=== PATIENT | male | born 1940 | race Caucasian/White ===

== ENCOUNTER 2018-06-10 05:43 | Inpatient (IN) | payer MEDICARE, BC ==
[2018-05-31 12:03] LABS: MEAN CORPUSCULAR HEMOGLOBIN 29.9 PG (27.0-31.0); MEAN CORPUSCULAR HGB CONC 33.9 % (33.0-36.5); MEAN CORPUSCULAR VOLUME 88.3 FL (78-98); MEAN PLATELET VOLUME 11.6 FL (7.4-10.4); PRE OP HEMATOCRIT 42.5 % (42.0-52.0); PRE OP HEMOGLOBIN 14.4 g/dL (14.0-17.9); PRE OP PLATELET COUNT 122 X10'3 (140-440); RED BLOOD COUNT 4.81 X10'6 (4.70-6.10); RED CELL DISTRIBUTION WIDTH 15.9 % (11.5-14.5)
[2018-05-31 12:15] LABS: ANISOCYTOSIS 1+; PLATELET ESTIMATE DECREASED; TOTAL CELLS COUNTED 100
[2018-05-31 12:17] LABS: ALBUMIN 4.1 G/DL (3.4-5.0); ALKALINE PHOSPHATASE 113 IU/L (46-116); BLOOD UREA NITROGEN 11 MG/DL (7-18); BUN/CREATININE RATIO 10.8 (5.4-32.0); CALCIUM 10.1 MG/DL (8.5-10.1); CHLORIDE 102 MMOL/L (99-107); CREATININE 1.02 MG/DL (0.60-1.10); PRE OP ALT 26 U/L (30-65); PRE OP ANION GAP 5 (8-16); PRE OP AST 41 U/L (10-37); PRE OP BILIRUB, TOTAL 0.8 MG/DL (0.0-1.0); PRE OP GLUCOSE 95 MG/DL (70-104); PRE OP POTASSIUM 4.1 MMOL/L (3.4-5.1); PRE OP SODIUM 139 MMOL/L (135-145); TOTAL CARBON DIOXIDE 31.6 MMOL/L (24-32); TOTAL PROTEIN 8.2 G/DL (6.4-8.2); eGFR 71 ML/MIN
[2018-05-31 12:26] LABS: PRE OP PROTIME 10.2 SECONDS (9.0-12.0)
[2018-06-03 14:41] LABS: CLARITY,URINE CLEAR (Clear); COLOR,URINE YELLOW (Yellow); GLUCOSE, URINE NEGATIVE (Neg); KETONES,URINE NEGATIVE (Neg); LEUKOCYTE ESTERASE ,URINE NEGATIVE (Neg); NITRITES, URINE NEGATIVE (Neg); OCCULT BLOOD,URINE NEGATIVE (Neg); PROTEIN,URINE NEGATIVE (Neg); UROBILINOGEN,URINE 0.2 E.U/dL (0.2-1.0)
[2018-06-03 14:42] LABS: UA COLLECTION TYPE CLN CATCH MIDSTREAM
[2018-06-10] VITALS (23 sets, daily range): BP systolic 95–139; BP diastolic 37–78
[~2018-06-10] VITALS: Ht 162.6 cm; Wt 69.4 kg
[~2018-06-10 05:43] MED LIST: ELTR25TA PO; acetaminophen 325mg tablet PO ONE; cefazolin/dext.iso 2gm/100 ML IV ONE; dexamethasone sod phosphate 10mg/ml inj IV ONE; diphenhydrAMINE 25mg capsule PO ONE; famotidine 20mg tablet PO ONE; gabapentin 300mg capsule PO ONE; oxyCODONE SR 10mg (sust. release) tab PO ONE; ringers solution, lacted 1,000 ML IV SCH; tranexamic acid inj. 1,500 MG in normal saline 100ml IV soln 85 ML IV ONE; vancomycin inj 1,500 MG in normal saline 300ml IV soln IV ONE
[2018-06-10] MEDS ORDERED: LIDOcaine 1% (10mg/ml) 2ml vial ONE (06:07)
[2018-06-10 06:43] LABS: BASOPHILS % (AUTO) 0.5 % (0-1); EOSINOPHILS # (AUTO) 0.1 X10'3 (0-0.9); EOSINOPHILS % (AUTO) 2.8 % (0-6); HEMATOCRIT 38.4 % (42.0-52.0); LYMPHOCYTES # (AUTO) 1.1 X10'3 (1.1-4.8); LYMPHOCYTES % (AUTO) 33.6 % (21-51); MEAN CORPUSCULAR HEMOGLOBIN 30.1 PG (27.0-31.0); MEAN CORPUSCULAR HGB CONC 33.8 % (33.0-36.5); MEAN CORPUSCULAR VOLUME 88.9 FL (78-98); MEAN PLATELET VOLUME 11.4 FL (7.4-10.4); MONOCYTES # (AUTO) 0.3 X10'3 (0-0.9); MONOCYTES % (AUTO) 8.6 % (2-12); NEUTROPHILS # (AUTO) 1.8 X10'3 (1.8-7.7); NEUTROPHILS % (AUTO) 54.5 % (42-75); PLATELET COUNT 122 X10'3 (140-440); RED BLOOD COUNT 4.32 X10'6 (4.70-6.10); RED CELL DISTRIBUTION WIDTH 15.6 % (11.5-14.5); WHITE BLOOD COUNT 3.4 X10'3 (4.5-11.0)
[2018-06-10] MEDS ORDERED: ROPIVAcaine 0.5% (5mg/ml) 30ml vial ONE (06:51)
[2018-06-10] MEDS ORDERED: bacitracin inj 150,000 UNIT in sodium chloride irrig. sol 3,000 ML IR ONE (07:00)
[2018-06-10] MEDS ORDERED: morphine /PF 1mg/ml 10ml inj. ONE (07:12)
[2018-06-10] MEDS ORDERED: MIDAZolam 1mg/ml 10ml vial ONE (07:12)
[2018-06-10] MEDS ORDERED: fentaNYL/PF 50MCG/1 ML 2ML syringe ONE (07:12)
[2018-06-10 07:47] LABS: LARGE PLATELETS FEW; PLATELET ESTIMATE DECREASED
[2018-06-10 07:48] LABS: ANISOCYTOSIS 1+
[2018-06-10] MEDS ORDERED: ringers solution, lacted 1,000 ML IV SCH (07:59)
[2018-06-10] MEDS ORDERED: naloxone 2mg/2ml inj 1.4 MG in normal saline 500ml IV soln 500 ML IV PRN (07:59)
[2018-06-10] MEDS ORDERED: meperidine/PF 25mg/ml syringe IV PRN ×3 (08:00)
[2018-06-10] MEDS ORDERED: proCHLORperazine 10 MG/2 ml inj IV PRN (08:00)
[2018-06-10] MEDS ORDERED: morphine 4 MG/ML inj SYRINge IV PRN ×2 (08:00)
[2018-06-10] MEDS ORDERED: ondansetron/PF 4mg/2ml inj IV PRN ×3 (08:00→09:10)
[2018-06-10] MEDS ORDERED: diphenhydrAMINE 50 mg/ml inj IV PRN (08:00)
[2018-06-10] MEDS ORDERED: ePHEDrine 50MG/ML INJ. ONE (08:28)
[2018-06-10] MEDS ORDERED: bisacodyl 10mg suppository rectal RC PRN (09:10)
[2018-06-10] MEDS ORDERED: ELTROMBOPAG OLAMINE 25 MG PO SCH (09:10)
[2018-06-10] MEDS ORDERED: diphenhydrAMINE 25mg capsule PO PRN ×2 (09:10)
[2018-06-10] MEDS ORDERED: magnesium hydroxide 30ml (MOM) UD suspension PO PRN (09:10)
[2018-06-10] MEDS ORDERED: acetaminophen 325mg tablet PO PRN (09:10)
[2018-06-10] MEDS ORDERED: oxyCODONE/APAP 10/325mg tablet PO PRN (09:10)
[2018-06-10] MEDS: ceFAZolin 1GM/D5W- ADD-VANTAGE 50 ML IV SCH ×2 (15:52→23:27)
[2018-06-10] MEDS: potassium cl 20mEq in 1/2 NS 1,000 ML IV SCH ×3 (15:52→23:27)
[2018-06-10] MEDS: gabapentin 300mg capsule PO SCH ×2 (15:52→20:27)
[2018-06-10] MEDS: sennosides 8.6mg tablet PO SCH (20:26)
[2018-06-10] MEDS: ascorbic acid 500mg tablet PO SCH (20:27)
[2018-06-11] VITALS (7 sets, daily range): BP systolic 92–134; BP diastolic 44–66
[2018-06-11 06:34] LABS: BASOPHILS % (AUTO) 0 % (0-1); EOSINOPHILS % (AUTO) 0.8 % (0-6); HEMATOCRIT 33.1 % (42.0-52.0); HEMOGLOBIN 11.3 g/dl (14.0-17.9); LYMPHOCYTES # (AUTO) 0.6 X10'3 (1.1-4.8); LYMPHOCYTES % (AUTO) 10.2 % (21-51); MEAN CORPUSCULAR HEMOGLOBIN 30.2 PG (27.0-31.0); MEAN CORPUSCULAR HGB CONC 34.1 % (33.0-36.5); MEAN CORPUSCULAR VOLUME 88.7 FL (78-98); MEAN PLATELET VOLUME 11.9 FL (7.4-10.4); MONOCYTES # (AUTO) 0.5 X10'3 (0-0.9); MONOCYTES % (AUTO) 8.9 % (2-12); NEUTROPHILS # (AUTO) 4.9 X10'3 (1.8-7.7); NEUTROPHILS % (AUTO) 80.1 % (42-75); PLATELET COUNT 107 X10'3 (140-440); RED BLOOD COUNT 3.74 X10'6 (4.70-6.10); RED CELL DISTRIBUTION WIDTH 15.2 % (11.5-14.5); WHITE BLOOD COUNT 6.1 X10'3 (4.5-11.0)
[2018-06-11 06:52] LABS: LARGE PLATELETS FEW; PLATELET ESTIMATE DECREASED
[2018-06-11 06:54] LABS: ALANINE AMINOTRANSFERASE 23 U/L (12-78); ALBUMIN 2.7 G/DL (3.4-5.0); ALBUMIN/GLOBULIN RATIO 0.8 (1.1-1.5); ALKALINE PHOSPHATASE 72 IU/L (46-116); ANION GAP 7 (8-16); ASPARTATE AMINO TRANSFERASE 54 U/L (10-37); BILIRUBIN,TOTAL 0.6 MG/DL (0.1-1.0); BLOOD UREA NITROGEN 12 MG/DL (7-18); BUN/CREATININE RATIO 12.2 (5.4-32.0); CALCIUM 8.4 MG/DL (8.5-10.1); CHLORIDE 104 MMOL/L (99-107); CREATININE 0.98 MG/DL (0.60-1.10); GLUCOSE 101 MG/DL (70-104); POTASSIUM 3.9 MMOL/L (3.5-5.1); SODIUM 139 MMOL/L (135-145); TOTAL CARBON DIOXIDE 28.2 MMOL/L (24-32); TOTAL PROTEIN 5.9 G/DL (6.4-8.2); eGFR 74 ML/MIN
[2018-06-11 06:57] LABS: INR 1.1 INR; PROTHROMBIN TIME 10.9 SECONDS (9.0-12.0)
[2018-06-11] MEDS: ascorbic acid 500mg tablet PO SCH ×2 (07:22→20:40)
[2018-06-11] MEDS: multivitamins, therapeutics tablet PO SCH (07:22)
[2018-06-11] MEDS: gabapentin 300mg capsule PO SCH ×3 (07:23→20:40)
[2018-06-11] MEDS: potassium cl 20mEq in 1/2 NS 1,000 ML IV SCH ×2 (07:29→15:44)
[2018-06-11] MEDS: oxyCODONE/APAP 10/325mg tablet PO PRN ×2 (12:30→20:41)
[2018-06-11] MEDS: sennosides 8.6mg tablet PO SCH (20:41)
[2018-06-12] MEDS: potassium cl 20mEq in 1/2 NS 1,000 ML IV SCH (01:07)
[2018-06-12 05:05] LABS: BASOPHILS % (AUTO) 0.2 % (0-1); EOSINOPHILS % (AUTO) 0.8 % (0-6); HEMATOCRIT 30.3 % (42.0-52.0); HEMOGLOBIN 10.4 g/dl (14.0-17.9); LYMPHOCYTES # (AUTO) 0.5 X10'3 (1.1-4.8); LYMPHOCYTES % (AUTO) 15.5 % (21-51); MEAN CORPUSCULAR HEMOGLOBIN 30.5 PG (27.0-31.0); MEAN CORPUSCULAR HGB CONC 34.3 % (33.0-36.5); MEAN CORPUSCULAR VOLUME 88.8 FL (78-98); MEAN PLATELET VOLUME 12.3 FL (7.4-10.4); MONOCYTES # (AUTO) 0.5 X10'3 (0-0.9); MONOCYTES % (AUTO) 15.9 % (2-12); NEUTROPHILS # (AUTO) 2.2 X10'3 (1.8-7.7); NEUTROPHILS % (AUTO) 67.6 % (42-75); PLATELET COUNT 72 X10'3 (140-440); RED BLOOD COUNT 3.41 X10'6 (4.70-6.10); RED CELL DISTRIBUTION WIDTH 15.9 % (11.5-14.5); WHITE BLOOD COUNT 3.3 X10'3 (4.5-11.0)
[2018-06-12 05:27] LABS: ALANINE AMINOTRANSFERASE 20 U/L (12-78); ALBUMIN 2.5 G/DL (3.4-5.0); ALBUMIN/GLOBULIN RATIO 0.8 (1.1-1.5); ALKALINE PHOSPHATASE 77 IU/L (46-116); ANION GAP 7 (8-16); ASPARTATE AMINO TRANSFERASE 55 U/L (10-37); BILIRUBIN,TOTAL 0.6 MG/DL (0.1-1.0); BLOOD UREA NITROGEN 14 MG/DL (7-18); BUN/CREATININE RATIO 14.4 (5.4-32.0); CALCIUM 8.5 MG/DL (8.5-10.1); CHLORIDE 104 MMOL/L (99-107); CREATININE 0.97 MG/DL (0.60-1.10); GLUCOSE 103 MG/DL (70-104); SODIUM 140 MMOL/L (135-145); TOTAL CARBON DIOXIDE 29.4 MMOL/L (24-32); TOTAL PROTEIN 5.8 G/DL (6.4-8.2); eGFR 75 ML/MIN
[2018-06-12 05:37] LABS: INR 1.1 INR; PROTHROMBIN TIME 10.7 SECONDS (9.0-12.0)
[2018-06-12] MEDS: oxyCODONE/APAP 10/325mg tablet PO PRN ×2 (05:39→09:24)
[2018-06-12 06:00] VITALS: BP 116/50
[2018-06-12 06:30] VITALS: BP 121/43
[2018-06-12] MEDS: ascorbic acid 500mg tablet PO SCH (07:41)
[2018-06-12] MEDS: multivitamins, therapeutics tablet PO SCH (07:41)
[2018-06-12] MEDS: gabapentin 300mg capsule PO SCH (07:41)
[2018-06-12] MEDS ORDERED: acetaminophen 325mg tablet PO PRN (09:10)
[2018-06-12 10:00] VITALS: BP 116/48
== END 2018-06-12 10:35 | disposition home or self-care (01) | DRG 470 ==
LOC: PAS IN 05:43 → EDSTATUS 07:30 → ORTHO 4S 11:30
PROVIDERS: ADMIT Specialist; ATTEND Specialist
PROC: 0SRB04Z Replacement of Left Hip Joint with Ceramic on Polyethylene Synthetic Substitute, Open Approach (ICD-10-PCS; principal; 2018-06-10 07:12)
DX: M16.7 Other unilateral secondary osteoarthritis of hip (principal); C95.10 Chronic leukemia of unspecified cell type not having achieved remission; M90.552 Osteonecrosis in diseases classified elsewhere, left thigh; D69.3 Immune thrombocytopenic purpura; M25.752 Osteophyte, left hip; E66.9 Obesity, unspecified; Z79.899 Other long term (current) drug therapy; Z87.891 Personal history of nicotine dependence; Z85.46 Personal history of malignant neoplasm of prostate; Z92.3 Personal history of irradiation; Z68.26 Body mass index [BMI] 26.0-26.9, adult
CPT/HCPCS: 36415; 73502; 80053; 81003; 85025; 85610; 85730; 86885; 86900; 86901; 87070; 97110; 97116; 97162; 97530; A6253; A6449; A6455; A7000; C1758; C1776; G0378; J0690; J1100; J2250; J2274; J2795; J3010; J3370; J3490; J7030; J7120